=== PATIENT | female | born 1965 | race Caucasian/White ===

== ENCOUNTER 2018-04-16 17:46 | Emergency (ER) | END 2018-04-16 19:33 | disposition home or self-care (01) ==

== ENCOUNTER 2019-01-05 21:51 | Emergency (ER) | payer SELFPAY ==
[~2019-01-05] VITALS: Ht 152.4 cm; Wt 70.6 kg
[~2019-01-05 21:51] MED LIST: CIPR500T4 PO; HYDR-3612 PO; NAPR-985 PO; ONDA4TAB13 PO
[2019-01-05 21:52] VITALS: BP 144/81; PULSE 66; RESP 16; Ht 152.4 cm; Wt 70.6 kg
== END 2019-01-06 01:04 | disposition left against medical advice (07) ==
LOC: FTE 21:51
DX: Z53.21 Procedure and treatment not carried out due to patient leaving prior to being seen by health care provider (principal)